=== PATIENT | male | born 1990 | race Caucasian/White ===

== ENCOUNTER 2021-07-19 04:02 | Emergency (ER) | payer OTHER, SELFPAY ==
--- NOTE | ~2021-07-19 | CT_ITS ---
EXAMINATION: CT ABDOMEN AND PELVIS WITHOUT CONTRAST CLINICAL INFORMATION: Abdominal pain COMPARISON: None TECHNIQUE: Multidetector volumetric imaging was performed from the superior aspect of the liver through the pubic symphysis. Sagittal and coronal reformatted images were obtained on the technologist's workstation. This CT examination was performed using dose optimization techniques as appropriate, variously including the following: *Automated exposure control *Adjustment of mA and/or kV according to patient size (this includes techniques or standardized protocols for targeted exams where dose is matched to indication/reason for exam; i.e. extremities or head) *Use of iterative reconstruction technique DLP: 632 mGy-cm FINDINGS: LUNG BASES: The visualized lung bases are unremarkable. LIVER, GALLBLADDER, AND BILIARY TREE: The liver is normal in size, shape, and attenuation. No focal hepatic lesion or biliary ductal dilatation is present. The gallbladder is unremarkable with no evidence of radiopaque gallstones, gallbladder wall thickening, or obvious pericholecystic inflammatory changes. PANCREAS: Unremarkable. SPLEEN: Unremarkable. ADRENAL GLANDS: Unremarkable. KIDNEYS AND URETERS: The kidneys are normal in size, shape, and attenuation. No hydronephrosis, hydroureter, or calculi seen. No perinephric stranding. BLADDER: Unremarkable. GASTROINTESTINAL TRACT: The small and large bowel are unremarkable. The appendix is unremarkable. ABDOMINAL WALL: No significant hernia is appreciated. LYMPH NODES: Normal. VASCULAR: Unremarkable. PELVIC VISCERA: Unremarkable. OSSEOUS STRUCTURES: Unremarkable. CT/CT abdomen pelvis wo con IMPRESSION: No significant abnormality. Fleischner guidelines were followed.
[2021-07-19 04:10] VITALS: BP 138/78; PULSE 77; RESP 18; TEMP 36.7; O2SAT 97; BMI 30.2
[2021-07-19 04:26] LABS: MANUAL DIFF FLAG NO
[2021-07-19 04:27] LABS: Basophils Percent Auto 0.5 % (0-2); Eosinophils Percent Auto 0.5 % (0-4); Hematocrit 41.7 % (42.0-52.0); Hemoglobin 14.5 g/dl (14.0-18.0); Imm Gran Abs Auto 0.03 X10*3/uL (0.00-0.03); Imm Gran Pct Auto 0.5 % (0.0-0.4); Lymphocytes Absolute Auto 1.6 X10*3/uL (1.2-4.9); Lymphocytes Percent Auto 28.2 % (20-40); Mean Corpuscular HGB Conc 34.8 g/dl (31.0-36.0); Mean Corpuscular Hemoglobin 29.5 pg (27.0-33.0); Mean Corpuscular Volume 84.8 fL (80.0-98.0); Mean Platelet Volume 9.7 fL (9.4-12.4); Monocytes Absolute Auto 0.3 X10*3/uL (0.1-1.2); Neutrophils Absolute Auto 3.6 x10*3/uL (2.0-8.3); Neutrophils Percent Auto 64.3 % (45-73); Platelet Count 226 X10*3/uL (160-400); Red Blood Count 4.92 X10*6/uL (4.60-5.80); Red Cell Distribution Width 13.1 % (11.0-16.0); White Blood Count 5.5 X10*3/uL (4.8-10.8)
[2021-07-19 04:41] VITALS: BP 114/65; PULSE 85; RESP 16; TEMP 37.1; O2SAT 97
--- NOTE | 2021-07-19 04:49 | PC.NURSE ---
Pt has hx of pancreatitis. Uses cocaine, heroin, methadone. Had a blood clot in the past, prescribed eliquis but has not taken in the past 30 days. Currently complaining 5/10 sharp pain in the mid/upper abdomen, vomiting bile emesis. Feels similar to when he was hospitalized for pancreatitis previously.
[2021-07-19 04:51] LABS: Alanine Aminotransferase 59 U/L (0-40); Albumin Level 4.3 g/dL (3.5-5.0); Alkaline Phosphatase 96 U/L (39-117); Anion Gap 13 (12-20); Aspartate Amino Transferase 52 U/L (5-37); Bilirubin Total 0.8 mg/dL (0.0-1.0); Blood Urea Nitrogen 13 mg/dL (9-16); Carbon Dioxide 27 mmol/L (22-29); Chloride 105 mmol/L (96-108); Estimated Glomerular Filt Rate > 60; Glucose Random 96 mg/dL (60-115); Potassium 4.4 mmol/L (3.3-5.1); Sodium 141 mmol/L (135-145); Total Protein 7.9 g/dL (6.5-8.0)
[2021-07-19 05:13] LABS: Appearance Urine CLEAR; Color Urine YELLOW; Glucose Urine UA NEG (NEG); Leukocyte Esterase Urine NEG (NEG); Nitrite Urine NEG (NEG); PH 6.5 (5.0-8.0); Urine Blood NEG (NEG); Urine Ketones NEG (NEG); Urine Protein NEG (NEG-TRACE)
[2021-07-19 05:16] LABS: Lipase 8 U/L (8-78)
[2021-07-19 05:25] LABS: Troponin-I High Sensitivity < 3.5 ng/L (<3.5-35.0)
[2021-07-19 05:58] LABS: COVID-19 Test Negative (Negative)
--- NOTE | 2021-07-19 06:12 | ECG_ITS ---
Test Reason : CHEST PAIN Blood Pressure : / mmHG Vent. Rate : 055 BPM Atrial Rate : 055 BPM P-R Int : 186 ms QRS Dur : 098 ms QT Int : 456 ms P-R-T Axes : 036 028 018 degrees QTc Int : 436 ms Sinus bradycardia Otherwise normal ECG No previous ECGs available Referred By: Taya Branch Electronically Signed By:BRENDON NEAL
--- NOTE | 2021-07-19 06:15 | ED_ITS ---
HPI - Abdominal Pain General Chief Complaint: Abdominal Pain Stated Complaint: Abd pain Time Seen by Provider: 07/19/21 05:00 History of Present Illness HPI narrative: Patient is a 31-year-old male with a long history of cocaine heroin abuse. Patient also has a history of alcohol abuse. History of alcohol induced pancreatitis. History of hepatitis-C. History of recreational IV drug use. Presented today with having abdominal pain after using heroin cocaine alcohol. The pain is epigastric similar to previous bouts of pancreatitis a burning sensation the lower chest. Patient denies any fever chills no coughing or congestion or upper respiratory symptoms. He is not vaccinated for COVID. He denies any headache denies any change in smell and taste. He is from home. Related Data Previous Rx's Medication Instructions Recorded pantoprazole 40 mg tablet,delayed 40 mg PO DAILY #14 tabs 07/19/21 release (Protonix) Allergies Allergy/AdvReac Type Severity Reaction Status Date / Time cefaclor [From [facility]] Allergy Unknown UNKNOWN Unverified 10/25/19 18:24 Review of Systems Review of Systems No fever no chills positive epigastric pain positive nausea vomiting Yes all other systems are reviewed and are negative [facility] Social History Social History Alcohol intake: current Alcohol intake frequency: holidays/special occasions only Patient Tobacco Use Status: Never used Tobacco Use of substances other than those prescribed or required for medical reasons: Yes Substance Use Type: Crack/Cocaine and Heroin Substance Use Type Other:: Methadone Substance Use Frequency: Daily Last Used Substance: Hours (ago) Advance Directives: No Physical Exam ED Vital Signs: Vital Signs - 24 hr 07/19/21 04:10 07/19/21 04:41 07/19/21 06:22 Temperature 98.1 F 98.7 F Pulse Rate 77 85 61 Respiratory Rate 18 16 14 Blood Pressure 138/78 114/65 114/70 Pulse Oximetry 97 97 99 Oxygen Delivery Method Room Air Room Air Room Air BMI result Body Mass Index 30.2 Appearance: Alert. Oriented X3. No acute distress. Eyes: Pupils equal, round and reactive to light. ENT: Pharynx normal. Neck: Normal inspection. Neck supple. No lymph nodes noted. No crepitus CVS: Normal heart rate and rhythm. Pulses normal. Normal S1 and S2 Respiratory: No respiratory distress. Breath sounds normal. No Wheezing. No rales Abdomen: Soft and nontender. No rigidity. No distention. good BS x4 Skin: Skin warm and dry. Normal skin color. Normal skin turgor. Extremities: No lower extremity edema. Neurovascular intact to all extremities. No Lacerations. No Rash Neuro: Oriented X 3. No motor deficit. No sensory deficit. Moving all extermities. No slurred speech MDM - Abdominal Pain MDM Narrative Medical decision making narrative: Patient's EKG showed a sinus pattern heart rate is 60 NC QRS QT within normal limits there is no acute ST segment elevation. Patient has pain in the epi gastric area chest similar to previous bouts of pancreatitis. However patient's lipase is normal. No evidence for pancreatitis LFTs slightly elevated consistent with having hepatitis-C. A CT scan of the abdomen is ordered. Patient epigastric chest pain is not seen on of the ACS. Is 31 years old. This symptom started after using cocaine heroin and mixing with alcohol. More likely patient has gastritis. Currently in stable condition. Patient's cardiac enzyme were done that were neg. Given an atypical history. 31 years old. Significant risk factor being patient on recreational drugs. Risk of ACS is low. Patient told to stop using recreational drugs CT showed no acute finding no obstruction no abscess no perforation. No evidence for pancreatitis Differential Diagnosis Differential diagnosis: Likely abdominal pain, acute appendicitis, calculus of kidney, gastroenteritis, gastritis, pancreatitis, peptic ulcer disease, renal colic and small bowel obstruction Lab Data Result diagrams: 07/19/21 04:16 07/19/21 04:16 Labs: Lab Results 07/19/21 07/19/21 07/19/21 Range/Units 04:16 04:16 04:16 WBC 5.5 (4.8-10.8) X10*3/uL RBC 4.92 (4.60-5.80) X10*6/uL Hgb 14.5 (14.0-18.0) g/dl Hct 41.7 L (42.0-52.0) % MCV 84.8 (80.0-98.0) fL MCH 29.5 (27.0-33.0) pg MCHC 34.8 (31.0-36.0) g/dl RDW 13.1 (11.0-16.0) % Plt Count 226 (160-400) X10*3/uL MPV 9.7 (9.4-12.4) fL Immature Gran % (Auto) 0.5 H (0.0-0.4) % Neut % (Auto) 64.3 (45-73) % Lymph % (Auto) 28.2 (20-40) % [place] % (Auto) 6.0 (2-11) % Eos % (Auto) 0.5 (0-4) % Baso % (Auto) 0.5 (0-2) % Lymph # (Auto) 1.6 (1.2-4.9) X10*3/uL [place] # (Auto) 0.3 (0.1-1.2) X10*3/uL Eos # (Auto) 0.0 (0.0-0.4) X10*3/uL Baso # (Auto) 0.0 (0.0-0.2) X10*3/uL Abs Immat Gran (auto) 0.03 (0.00-0.03) X10*3/uL Absolute Neuts (auto) 3.6 (2.0-8.3) x10*3/uL Absolute Nucleated RBC 0.000 (0.0-0.012) X10*3/uL Nucleated RBC % (auto) 0.0 (0.0-0.2) /100WBC Sodium 141 (135-145) mmol/L Potassium 4.4 (3.3-5.1) mmol/L Chloride 105 (96-108) mmol/L Carbon Dioxide 27 (22-29) mmol/L Anion Gap 13 (12-20) BUN 13 (9-16) mg/dL Creatinine 1.07 (0.5-1.4) mg/dL Estim Creat Clear Calc 123.0 Estimated GFR > 60 Random Glucose 96 (60-115) mg/dL Calcium 9.0 (8.4-10.2) mg/dL Total Bilirubin 0.8 (0.0-1.0) mg/dL AST 52 H (5-37) U/L ALT 59 H (0-40) U/L Alkaline Phosphatase 96 (39-117) U/L Troponin I High Sens (<3.5-35.0) ng/L Total Protein 7.9 (6.5-8.0) g/dL Albumin 4.3 (3.5-5.0) g/dL Lipase 8 (8-78) U/L Urine Color Urine Appearance Urine pH (5.0-8.0) Ur Specific [place] (1.005-1.025) Urine Protein (NEG-TRACE) MG/DL Urine Glucose (UA) (NEG) MG/DL Urine Ketones (NEG) MG/DL Urine Blood (NEG) Urine Nitrite (NEG) Ur Leukocyte Esterase (NEG) Ethyl Alcohol mg/dL COVID-19 (AIDE) Negative (Negative) COVID-19 Clin Com See Note 07/19/21 07/19/21 07/19/21 Range/Units 04:16 04:16 05:08 WBC (4.8-10.8) X10*3/uL RBC (4.60-5.80) X10*6/uL Hgb (14.0-18.0) g/dl Hct (42.0-52.0) % MCV (80.0-98.0) fL MCH (27.0-33.0) pg MCHC (31.0-36.0) g/dl RDW (11.0-16.0) % Plt Count (160-400) X10*3/uL MPV (9.4-12.4) fL Immature Gran % (Auto) (0.0-0.4) % Neut % (Auto) (45-73) % Lymph % (Auto) (20-40) % [place] % (Auto) (2-11) % Eos % (Auto) (0-4) % Baso % (Auto) (0-2) % Lymph # (Auto) (1.2-4.9) X10*3/uL [place] # (Auto) (0.1-1.2) X10*3/uL Eos # (Auto) (0.0-0.4) X10*3/uL Baso # (Auto) (0.0-0.2) X10*3/uL Abs Immat Gran (auto) (0.00-0.03) X10*3/uL Absolute Neuts (auto) (2.0-8.3) x10*3/uL Absolute Nucleated RBC (0.0-0.012) X10*3/uL Nucleated RBC % (auto) (0.0-0.2) /100WBC Sodium (135-145) mmol/L Potassium (3.3-5.1) mmol/L Chloride (96-108) mmol/L Carbon Dioxide (22-29) mmol/L Anion Gap (12-20) BUN (9-16) mg/dL Creatinine (0.5-1.4) mg/dL Estim Creat Clear Calc Estimated GFR Random Glucose (60-115) mg/dL Calcium (8.4-10.2) mg/dL Total Bilirubin (0.0-1.0) mg/dL AST (5-37) U/L ALT (0-40) U/L Alkaline Phosphatase (39-117) U/L Troponin I High Sens < 3.5 (<3.5-35.0) ng/L Total Protein (6.5-8.0) g/dL Albumin (3.5-5.0) g/dL Lipase (8-78) U/L Urine Color YELLOW Urine Appearance CLEAR Urine pH 6.5 (5.0-8.0) Ur Specific [place] 1.020 (1.005-1.025) Urine Protein NEG (NEG-TRACE) MG/DL Urine Glucose (UA) NEG (NEG) MG/DL Urine Ketones NEG (NEG) MG/DL Urine Blood NEG (NEG) Urine Nitrite NEG (NEG) Ur Leukocyte Esterase NEG (NEG) Ethyl Alcohol 91 mg/dL COVID-19 (AIDE) (Negative) COVID-19 Clin Com Discharge Plan Discharge Clinical Impression: Gastritis Patient Disposition: Home, Self-Care Instructions: Chest Pain (ED), Gastritis (ED), Polysubstance Abuse (ED), Alcohol Use Disorder (ED) Prescriptions: New pantoprazole [Protonix] 40 mg tablet,delayed release (DR/EC) 40 mg PO DAILY Qty: 14 0RF Referrals: Physician,None [Primary Care Provider] -
[2021-07-19 06:22] VITALS: BP 114/70; PULSE 61; RESP 14; O2SAT 99
[2021-07-19] MEDS: Magnesium Hydrox/Alum Hydrox 30 ML ORAL.SUSP PO (06:25)
[2021-07-19] MEDS: 0.9 % Sodium Chloride 1,000 ML 999 ML IV (06:25)
[2021-07-19 06:30] LABS: Ethanol 91 mg/dL
[2021-07-19] MEDS: Naloxone HCl Nasal TAKE HOME 4 MG SPRAY NOSTRILALT (07:45)
--- NOTE | 2021-07-19 07:45 | PC.NURSE ---
patient given list of detox centers and narcan kit to go prior to discharge . educated o proper use of narcan . no questions at this time .
== END 2021-07-19 07:47 | disposition home or self-care (01) ==
PROVIDERS: Emergency Provider Emergency Medicine Emergency Medical Services
DX: K29.70 Gastritis, unspecified, without bleeding (principal); F14.10 Cocaine abuse, uncomplicated; F11.10 Opioid abuse, uncomplicated; F10.10 Alcohol abuse, uncomplicated; Y90.4 Blood alcohol level of 80-99 mg/100 ml; Z20.822 Contact with and (suspected) exposure to COVID-19
CPT/HCPCS: 74176; 80053; 81003; 82077; 83690; 84484; 85025; 87635; 93005; 96360; 99284; 99285